=== PATIENT | female | born 1945 | race African-American/Black ===

== ENCOUNTER → 2016-10-29 | Outpatient (CLI) | payer MEDICARE | LOC: OD 15:48 | PROVIDERS: ATTEND Physician Assistant | DX: M54.5 Low back pain (principal); M51.36 Other intervertebral disc degeneration, lumbar region | CPT/HCPCS: 72110 ==

== ENCOUNTER → 2017-10-22 | Outpatient (CLI) | payer MEDICARE ==
--- NOTE | 2017-10-22 08:47 | RADIOLOGY REPORT (SQ) ---
EXAM DESCRIPTION: KNEE LEFT 4 VIEWS; KNEE RIGHT 4 VIEWS COMPLETED DATE/TIME: 10/22/2017 8:20 am REASON FOR STUDY: BILATERAL HIP PAIN,BILAT KNEE PAIN COMPARISON: None. FINDINGS: Four views right knee: Normal bone density. Preserved joint spaces with minimal medial j oint line spurring. No fracture or bone lesion. Probable joint effusion. Four views left knee: Normal bone density. Preserved joint spaces. No fracture or bone lesion. No suggestion of joint effusion. IMPRESSION: No fracture or bone lesion related to either knee. Minimal right knee degenerative spur ring. There may be a right knee joint effusion. TECHNICAL DOCUMENTATION: JOB ID: [id number] Reading location - IP/workstation name: [email or web address]
--- NOTE | 2017-10-22 08:47 | RADIOLOGY REPORT (SQ) ---
EXAM DESCRIPTION: KNEE LEFT 4 VIEWS; KNEE RIGHT 4 VIEWS COMPLETED DATE/TIME: 10/22/2017 8:20 am REASON FOR STUDY: BILATERAL HIP PAIN,BILAT KNEE PAIN COMPARISON: None. FINDINGS: Four views right knee: Normal bone density. Preserved joint spaces with minimal medial j oint line spurring. No fracture or bone lesion. Probable joint effusion. Four views left knee: Normal bone density. Preserved joint spaces. No fracture or bone lesion. No suggestion of joint effusion. IMPRESSION: No fracture or bone lesion related to either knee. Minimal right knee degenerative spur ring. There may be a right knee joint effusion. TECHNICAL DOCUMENTATION: JOB ID: [id number] Reading location - IP/workstation name: [email or web address]
--- NOTE | 2017-10-22 09:13 | RADIOLOGY REPORT (SQ) ---
EXAM DESCRIPTION: HIPS BILATERAL COMPLETED DATE/TIME: 10/22/2017 8:20 am REASON FOR STUDY: BILATERAL HIP PAIN,BILAT KNEE PAIN COMPARISON: None. NUMBER OF VIEWS: Three views, AP pelvis and bilateral frog lateral hips. LIMITATIONS: None. FINDINGS: Normal bone density. Hip joint spaces look fairly symmetric and maintained bilaterally. Mild degenerative sclerosis along the SI joints. No pelvic fracture or bone lesion. No hip fracture . OTHER: No other significant finding. IMPRESSION: No acute or suspicious radiographic abnormality. TECHNICAL DOCUMENTATION: JOB ID: [id number] Reading location - IP/workstation name: [email or web address]
== END ==
LOC: OD 07:59
PROVIDERS: ATTEND Physician Assistant
DX: M25.551 Pain in right hip (principal); M25.552 Pain in left hip; M25.561 Pain in right knee; M25.562 Pain in left knee
CPT/HCPCS: 73522

== ENCOUNTER → 2018-10-16 | Outpatient (CLI) | payer MEDICARE, OTHER ==
--- NOTE | 2018-10-16 13:32 | WOMENS IMAGING REPORT ---
EXAM DESCRIPTION: BONE DENSITY HIP/SPINE COMPLETED DATE/TIME: 10/16/2018 1:22 pm REASON FOR STUDY: M81.0 AGE RELATED OSTEOPOROSIS WITHOUT CURRENT PATHOLOGICAL FRACTURE M81.0 AGE-RE LATED OSTEOPOROSIS W/O CURRENT PATHOLOGICAL FRAC COMPARISON: None. TECHNIQUE: Dual-Energy X-ray Absorptiometry (DEXA) of the AP Spine and Hip. LIMITATIONS: None. FINDINGS: LUMBAR SPINE: The bone mineral density (BMD) measured from L1-L4 in the AP projection correlates with a T-score of -1.3, which is osteopenia as defined by the World Health Organization. HIP: The bone mineral density (BMD) measured in the left hip correlates with a T-score of -2.3 in the femo ral neck, which is osteopenia as defined by the World Health Organization. IMPRESSION: 1. LUMBAR SPINE: Osteopenia 2. HIP: Osteopenia COMMENT: The patient has a 10 year risk of major osteoporotic fracture of 5.4%. Her 10 year risk of hip fracture is 1.1%. The World Health Organization defines low BMD as follows: T-score: Normal: Greater than -1.0 Osteopenia: Between -1.0 and -2.5 Osteoporosis: Less than -2.5 without fractures Established osteoporosis: Less than -2.5 with fractures In general, you may wish to consider: Diagnosis Treatment Follow-up DEXA Normal BMD Prevention 2-3 years Osteopenia Prevention/Therapy 1-2 years Osteoporosis Therapy Yearly TECHNICAL DOCUMENTATION: JOB ID: [id number] [employer]- All Rights Reserved Reading location - IP/workstation name: [email or web address]
== END ==
LOC: WI 13:03
PROVIDERS: ATTEND Physician Assistant
DX: M81.0 Age-related osteoporosis without current pathological fracture (principal)
CPT/HCPCS: 77080

== ENCOUNTER 2019-02-11 14:37 | Emergency (ER) | payer MEDICARE, OTHER ==
[2019-02-11] MEDS ORDERED: ASPIRIN 81 MG TABLET, CHEWABLE PO ONE (15:26)
--- NOTE | 2019-02-11 15:38 | ER Document Report ---
ED Medical Screen (RME) - General Chief Complaint: Chest Pain > 30 Stated Complaint: CHEST PAIN Time Seen by Provider: 02/11/19 15:13 Primary Care Provider: ROXY ESPARZA PA [Primary Care Provider] - Follow up as needed TRAVEL OUTSIDE OF THE [place] IN LAST 30 DAYS: No - HPI Notes: 02/11/19 19:29 73-year-old female started with chest pressure tightness since she has intermittent left arm pain that started today, was seen at the regulatory affairs specialist, states she was feeling "sick" physician or listen to her, after listening to her told her that she needed to go to the emergency room immediately. Denies a history of arrhythmia or heart issues. Patient did take baby aspirin 81 mg today. Denies a history of CA, CAD. Denies any history of asthma. States pain has been a "dull ache". Denies any numbness or tingling to arms or legs, facial numbness or tingling, speech changes. Denies any trauma to chest. Is not on any anticoagulation besides intermittent baby aspirin that she takes sparingly. ROS: Other than noted above, the 12 point review of systems was reviewed with the patient and were negative, all pertinent findings are included in the HPI. PHYSICAL EXAMINATION: Vital signs reviewed. GENERAL: Well-appearing, well-nourished and in no acute distress. HEAD: Atraumatic, normocephalic. NECK: Normal range of motion CV: Heart regular rate and rhythm LUNGS: No respiratory distress Musculoskeletal: Normal range of motion NEUROLOGICAL: Normal speech PSYCH: Normal mood, normal affect. MDM: Patient seen and examined for rapid initial assessment. Vital signs reviewed. A comprehensive ED assessment and evaluation of the patient, analysis of test results and completion of the medical decision making process will be conducted by additional ED providers. *Note is created using voice recognition software and may contain spelling, syntax or grammatical errors. 02/11/19 19:31 - Related Data Allergies/Adverse Reactions: No Known Allergies Allergy (Verified 02/17/15 14:33) Past Medical History - Past Medical History Cardiac Medical History: Denies: Hx Coronary Artery Disease, Hx Heart Attack, Hx Hypertension Pulmonary Medical History: Denies: Hx Asthma, Hx Bronchitis, Hx COPD, Hx Pneumonia Neurological Medical History: Denies: Hx Cerebrovascular Accident, Hx Seizures GI Medical History: Reports: Hx Diverticulitis, Hx Gastroesophageal Reflux Disease. Denies: Hx Hepatitis, Hx Hiatal Hernia, Hx Ulcer Musculoskeltal Medical History: Denies Hx Arthritis Infectious Medical History: Denies: Hx Hepatitis Past Surgical History: Reports: Hx Cholecystectomy, Hx Hysterectomy. Denies: Hx Mastectomy, Hx Open Heart Surgery, Hx Pacemaker - Immunizations Hx Diphtheria, Pertussis, Tetanus Vaccination: Yes - UNKNOWN DATE Physical Exam - Vital signs Vitals: Temp Pulse Resp BP Pulse Ox 97.6 F 90 18 142/79 H 99 02/11/19 15:07 02/11/19 15:07 02/11/19 15:07 02/11/19 15:07 02/11/19 15:07 Course - Vital Signs Vital signs: Temp Pulse Resp BP Pulse Ox 97.6 F 90 18 142/79 H 99 02/11/19 15:07 02/11/19 15:07 02/11/19 15:07 02/11/19 15:07 02/11/19 15:07 - Laboratory Result Diagrams: 02/11/19 15:30 02/11/19 15:30 Laboratory results interpreted by me: 02/11/19 15:30 MCH 26.5 L RDW 14.8 H Doctor's Discharge - Discharge Referrals: ROXY ESPARZA PA [Primary Care Provider] - Follow up as needed
[2019-02-11 15:47] LABS: ABSOLUTE LYMPHOCYTES (AUTO) 1.6 10^3/uL (0.5-4.7); ABSOLUTE MONOCYTES (AUTO) 0.4 10^3/uL (0.1-1.4); ABSOLUTE NEUT (AUTO) 2.1 10^3/uL (1.7-8.2); EOSINOPHILS % (AUTO) 0.8 % (0-6); HEMATOCRIT 40.2 % (36.0-47.0); HEMOGLOBIN 13.2 g/dL (12.0-15.5); LYMPHOCYTES % (AUTO) 38.3 % (13-45); MEAN CORPUSCULAR HEMOGLOBIN 26.5 pg (27.0-33.4); MEAN CORPUSCULAR VOLUME 80 fl (80-97); MONOCYTES % (AUTO) 9.4 % (3-13); PLATELET COUNT 304 10^3/uL (150-450); RED CELL DISTRIBUTION WIDTH 14.8 % (11.5-14.0); SEGMENTED NEUTROPHILS % (AUTO) 50.5 % (42-78); TOTAL CELLS COUNTED % (AUTO) 100 %; WHITE BLOOD COUNT 4.1 10^3/uL (4.0-10.5)
[2019-02-11 15:52] LABS: INTERNATIONAL RATION (INR) 1.04; PROTHROMBIN TIME 13.6 SEC (11.4-15.4)
[2019-02-11 15:53] LABS: PARTIAL THROMBOPLASTIN TIME 31.7 SEC (23.5-35.8)
--- NOTE | 2019-02-11 16:10 | RADIOLOGY REPORT (SQ) ---
EXAM DESCRIPTION: CHEST SINGLE VIEW COMPLETED DATE/TIME: 02/11/2019 3:56 pm REASON FOR STUDY: chest pain COMPARISON: None. EXAM PARAMETERS: NUMBER OF VIEWS: One view. TECHNIQUE: Single frontal radiographic view of the chest acquired. RADIATION DOSE: NA LIMITATIONS: None. FINDINGS: LUNGS AND PLEURA: No opacities, masses or pneumothorax. No pleural effusion. MEDIASTINUM AND HILAR STRUCTURES: No masses. Contour normal. HEART AND VASCULAR STRUCTURES: Heart normal in size. Normal vasculature. BONES: No acute findings. HARDWARE: None in the chest. OTHER: No other significant finding. IMPRESSION: NO ACUTE RADIOGRAPHIC FINDING IN THE CHEST. TECHNICAL DOCUMENTATION: JOB ID: [id number] [employer]- All Rights Reserved Reading location - IP/workstation name: [email or web address]
[2019-02-11 16:14] LABS: ALANINE AMINOTRANSFERASE 27 U/L (9-52); ALBUMIN 4.2 g/dL (3.5-5.0); ALKALINE PHOSPHATASE 126 U/L (38-126); ANION GAP 9 (5-19); ASPARTATE AMINO TRANSFERASE 24 U/L (14-36); BILIRUBIN,DIRECT 0.1 mg/dL (0.0-0.4); BLOOD UREA NITROGEN 12 mg/dL (7-20); CALCIUM 9.9 mg/dL (8.4-10.2); CARBON DIOXIDE 30 mmol/L (22-30); CHLORIDE 103 mmol/L (98-107); CREATINE KINASE 62 U/L (30-135); GLUCOSE 89 mg/dL (75-110); POTASSIUM 4.4 mmol/L (3.6-5.0); SODIUM 141.8 mmol/L (137-145); TOTAL PROTEIN 7.3 g/dL (6.3-8.2)
[2019-02-11 16:26] LABS: TROPONIN I < 0.012 ng/mL
--- NOTE | 2019-02-11 18:57 | EKG REPORT ---
SEVERITY:- BORDERLINE ECG - SINUS RHYTHM PROBABLE LEFT ATRIAL ABNORMALITY : Confirmed by: Sy Bajwa MD 11-Feb-2019 18:57:01
--- NOTE | 2019-02-12 02:00 | ER Document Report ---
ED General - General Chief Complaint: Chest Pain > 30 Stated Complaint: CHEST PAIN Time Seen by Provider: 02/11/19 15:13 Primary Care Provider: ROXY ESPARZA PA [Primary Care Provider] - Follow up as needed Notes: 73-year-old healthy female presents to the emergency department for chest discomfort that started with chest pressure and tightness while accompanying her daughter to her orthopedic appointment, she stated that she was feeling "sick" and asked her daughter's physician to listen to her heart, after listening to her told her that she needed to go to the emergency room immediately. She states the pain was a very dull ache and had no diaphoresis, nausea, acute shortness of breath. No significant family history, she has no medical history and denies a history of arrhythmia or heart issues. Patient did take baby aspirin 81 mg today. Denies any numbness or tingling to arms or legs, facial numbness or tingling, speech changes. Denies any trauma to chest. Is not on any anticoagulation besides intermittent baby aspirin that she takes sparingly. TRAVEL OUTSIDE OF THE [place] IN LAST 30 DAYS: No - Related Data Allergies/Adverse Reactions: No Known Allergies Allergy (Verified 02/17/15 14:33) Past Medical History - Social History Smoking Status: Never Smoker Family History: Reviewed & Not Pertinent - Past Medical History Cardiac Medical History: Denies: Hx Coronary Artery Disease, Hx Heart Attack, Hx Hypertension Pulmonary Medical History: Denies: Hx Asthma, Hx Bronchitis, Hx COPD, Hx Pneumonia Neurological Medical History: Denies: Hx Cerebrovascular Accident, Hx Seizures GI Medical History: Reports: Hx Diverticulitis, Hx Gastroesophageal Reflux Disease. Denies: Hx Hepatitis, Hx Hiatal Hernia, Hx Ulcer Musculoskeletal Medical History: Denies Hx Arthritis Infectious Medical History: Denies: Hx Hepatitis Past Surgical History: Reports: Hx Cholecystectomy, Hx Hysterectomy. Denies: Hx Mastectomy, Hx Open Heart Surgery, Hx Pacemaker - Immunizations Hx Diphtheria, Pertussis, Tetanus Vaccination: Yes - UNKNOWN DATE Review of Systems - Review of Systems Constitutional: See HPI EENT: No symptoms reported Cardiovascular: See HPI Respiratory: See HPI Gastrointestinal: See HPI Genitourinary: No symptoms reported Female Genitourinary: No symptoms reported Musculoskeletal: No symptoms reported Skin: No symptoms reported Hematologic/Lymphatic: No symptoms reported Neurological/Psychological: See HPI Physical Exam - Vital signs Vitals: Temp Pulse Resp BP Pulse Ox 97.6 F 90 18 142/79 H 99 02/11/19 15:07 02/11/19 15:07 02/11/19 15:07 02/11/19 15:07 02/11/19 15:07 - Notes Notes: PHYSICAL EXAMINATION: Reviewed vital signs and charting by RN GENERAL: Alert, interacts well. No acute distress. HEAD: Normocephalic, atraumatic. EYES: Pupils equal and round. Extraocular movements intact. ENT: Oral mucosa moist, tongue midline. NECK: Full range of motion. Trachea midline. LUNGS: Clear to auscultation bilaterally, no wheezes, rales, or rhonchi. No respiratory distress. HEART: Regular rate and rhythm. No murmur ABDOMEN: soft, non-tender. No distention. Bowel sounds present EXTREMITIES: Moves all 4 extremities spontaneously. No edema, No cyanosis. PSYCH: Normal affect, normal mood. SKIN: Warm, dry, normal turgor. No rashes or lesions noted. Course - Re-evaluation Re-evalutation: 02/12/19 02:02 Patient overall very well-appearing. She has no past medical history and is a very healthy 73-year-old female. Heart score 2 for age. Showed normal sinus rhythm with a rate of 86, no axis deviation, QTC 445. Her symptoms were fairly nebulous and a very low suspicion for cardiac etiology. I do not suspect she has PE, aortic aneurysm, aortic dissection, or ACS. No evidence of acute stroke. All lab values within normal limits. Chest x-ray did not show any evidence of parenchymal disease or cardiomegaly, no widened mediastinum. 02/12/19 02:05 Second troponin returned negative. At this time patient is stable for discharge with strict return precautions and follow-up instructions. - Vital Signs Vital signs: Temp Pulse Resp BP Pulse Ox 97.6 F 90 18 142/79 H 99 02/11/19 15:07 02/11/19 15:07 02/11/19 15:07 02/11/19 15:07 02/11/19 15:07 - Laboratory Result Diagrams: 02/11/19 15:30 02/11/19 15:30 Laboratory results interpreted by me: 02/11/19 15:30 MCH 26.5 L RDW 14.8 H Discharge - Discharge Clinical Impression: Chest discomfort Condition: Good Disposition: HOME, SELF-CARE Additional Instructions: You were seen today for chest discomfort. The exact cause of your pain is unclear. However, based on your cardiac enzyme testing, chest x-ray, and EKG it does not appear that it is from an immediately life-threatening cause at this time. Although your testing here is normal is critical that you follow-up with your primary care physician for continued evaluation of this chest pain and possible stress testing. I recommended you see your physician within the next 24-48 hours to be evaluated for consideration of a stress test. Please return to emergency department immediately if you have worsening of your chest pain, shortness of breath, vomiting, become unable to exert yourself due to pain or difficulty breathing, you pass out, or have any pain that radiates into your arms, jaw, or back. Please also return if you have any additional symptoms that are concerning to you. Referrals: ROXY ESPARZA PA [Primary Care Provider] - Follow up as needed
[2019-02-12 02:24] VITALS: BP 148/56
== END 2019-02-12 02:22 | disposition home or self-care (01) ==
LOC: ER 14:37
DX: R07.9 Chest pain, unspecified (principal); Z90.49 Acquired absence of other specified parts of digestive tract; Z90.710 Acquired absence of both cervix and uterus
CPT/HCPCS: 93005; 99285; 36415; 82553; 82550; 85025; 85610; 85730; 80053; 84484; 71045; 93010; A9270

== ENCOUNTER 2019-03-26 04:51 | Emergency (ER) | payer MEDICARE, OTHER ==
[2019-03-26] MEDS ORDERED: NORMAL SALINE 500 ML IV ONE (06:20)
--- NOTE | 2019-03-26 06:23 | ER Document Report ---
ED General - General Chief Complaint: Neck Swelling Stated Complaint: NECK PAIN Time Seen by Provider: 03/26/19 06:10 Primary Care Provider: ROXY ESPARZA PA [Primary Care Provider] - Follow up as needed TRAVEL OUTSIDE OF THE [place] IN LAST 30 DAYS: No - HPI Notes: Patient presents with concern of neck swelling. Patient had endoscopy Saturday of this week. Uneventful procedure had no symptoms 2 0 Saturday. She woke up last night with swelling on medial aspect of right side of anterior neck. States she does not have any difficulty swallowing. No recent traumas fevers or illnesses. Unknown cause of swelling. - Related Data Allergies/Adverse Reactions: No Known Allergies Allergy (Verified 02/17/15 14:33) Past Medical History - Social History Smoking Status: Unknown if Ever Smoked Family History: Reviewed & Not Pertinent - Past Medical History Cardiac Medical History: Denies: Hx Coronary Artery Disease, Hx Heart Attack, Hx Hypertension Pulmonary Medical History: Denies: Hx Asthma, Hx Bronchitis, Hx COPD, Hx Pneumonia Neurological Medical History: Denies: Hx Cerebrovascular Accident, Hx Seizures Renal/ Medical History: Denies: Hx Peritoneal Dialysis GI Medical History: Reports: Hx Diverticulitis, Hx Gastroesophageal Reflux Disease. Denies: Hx Hepatitis, Hx Hiatal Hernia, Hx Ulcer Musculoskeletal Medical History: Denies Hx Arthritis Infectious Medical History: Denies: Hx Hepatitis Past Surgical History: Reports: Hx Cholecystectomy, Hx Hysterectomy. Denies: Hx Mastectomy, Hx Open Heart Surgery, Hx Pacemaker - Immunizations Hx Diphtheria, Pertussis, Tetanus Vaccination: Yes - UNKNOWN DATE Review of Systems - Review of Systems Constitutional: No symptoms reported EENT: See HPI Cardiovascular: No symptoms reported Respiratory: No symptoms reported Gastrointestinal: No symptoms reported Genitourinary: No symptoms reported Female Genitourinary: No symptoms reported Musculoskeletal: No symptoms reported Skin: No symptoms reported Hematologic/Lymphatic: No symptoms reported Neurological/Psychological: No symptoms reported Physical Exam - Vital signs Vitals: Temp Pulse Resp BP Pulse Ox 97.9 F 96 17 145/65 H 96 03/26/19 05:00 03/26/19 05:00 03/26/19 05:00 03/26/19 05:00 03/26/19 05:00 - General General appearance: Appears well, Alert - HEENT Head: Normocephalic, Atraumatic Neck: Other - Minor swelling with induration medial aspect of anterior aspect right side of the neck. Induration area approximately 1 x 3 inches. No erythema or warmth. Normal oropharynx - Respiratory Respiratory status: No respiratory distress Chest status: Nontender Breath sounds: Normal - Cardiovascular Rhythm: Regular Heart sounds: Normal auscultation Murmur: No - Abdominal Inspection: Normal Distension: No distension Course - Re-evaluation Re-evalutation: 03/26/19 10:30 Found to have 2 thyroid nodules that approximately the size that is called on CT report. Discussed findings with patient. Do not feel her symptoms have anything to do with her endoscopy which is on Saturday and then she just noticed these nodules this morning. Advised to follow-up outpatient ultrasound with her primary care provider she states she will do so. - Vital Signs Vital signs: Temp Pulse Resp BP Pulse Ox 97.8 F 85 18 140/80 H 100 03/26/19 10:50 03/26/19 10:50 03/26/19 10:50 03/26/19 10:50 03/26/19 10:50 - Laboratory Result Diagrams: 03/26/19 06:53 03/26/19 06:53 Laboratory results interpreted by me: 03/26/19 03/26/19 06:53 06:53 MCH 26.4 L RDW 14.4 H Carbon Dioxide 32 H Glucose 114 H Discharge - Discharge Clinical Impression: Multiple thyroid nodules Condition: Good Disposition: HOME, SELF-CARE Additional Instructions: Follow-up with your family doctor in regards to the thyroid nodules found today on your CT. Referrals: ROXY ESPARZA PA [Primary Care Provider] - Follow up as needed
[2019-03-26 07:07] LABS: ABSOLUTE BASOPHILS # (AUTO) 0.1 10^3/uL (0.0-0.2); ABSOLUTE LYMPHOCYTES (AUTO) 1.2 10^3/uL (0.5-4.7); ABSOLUTE MONOCYTES (AUTO) 0.5 10^3/uL (0.1-1.4); ABSOLUTE NEUT (AUTO) 4.3 10^3/uL (1.7-8.2); BASOPHILS % (AUTO) 0.8 % (0-2); EOSINOPHILS % (AUTO) 0.6 % (0-6); HEMATOCRIT 38.9 % (36.0-47.0); HEMOGLOBIN 12.9 g/dL (12.0-15.5); LYMPHOCYTES % (AUTO) 20.2 % (13-45); MEAN CORPUSCULAR HEMOGLOBIN 26.4 pg (27.0-33.4); MEAN CORPUSCULAR HGB CONC 33.1 g/dL (32.0-36.0); MEAN CORPUSCULAR VOLUME 80 fl (80-97); MONOCYTES % (AUTO) 7.9 % (3-13); PLATELET COUNT 292 10^3/uL (150-450); RED BLOOD COUNT 4.89 10^6/uL (3.72-5.28); RED CELL DISTRIBUTION WIDTH 14.4 % (11.5-14.0); SEGMENTED NEUTROPHILS % (AUTO) 70.5 % (42-78); TOTAL CELLS COUNTED % (AUTO) 100 %; WHITE BLOOD COUNT 6.1 10^3/uL (4.0-10.5)
[2019-03-26 07:20] LABS: ALBUMIN 4.3 g/dL (3.5-5.0); ALKALINE PHOSPHATASE 123 U/L (38-126); ANION GAP 9 (5-19); ASPARTATE AMINO TRANSFERASE 23 U/L (14-36); BILIRUBIN,DIRECT 0.3 mg/dL (0.0-0.4); BILIRUBIN,TOTAL 0.9 mg/dL (0.2-1.3); BLOOD UREA NITROGEN 13 mg/dL (7-20); CALCIUM 9.9 mg/dL (8.4-10.2); CARBON DIOXIDE 32 mmol/L (22-30); CHLORIDE 100 mmol/L (98-107); GLUCOSE 114 mg/dL (75-110); TOTAL PROTEIN 7.5 g/dL (6.3-8.2)
--- NOTE | 2019-03-26 09:32 | RADIOLOGY REPORT (SQ) ---
EXAM DESCRIPTION: CT SOFT TISSUE NECK WITH COMPLETED DATE/TIME: 03/26/2019 8:32 am REASON FOR STUDY: EGD Saturday of this week, swelling R side of neck COMPARISON: None. TECHNIQUE: Post IV contrasted scanning from skull base through lung apices with review of bone, soft tissue and lung windows. Reconstructed coronal and sagittal MPR images reviewed. All images stored on PACS. All CT scanners at this facility use dose modulation, iterative reconstruction, and/or weight based d osing when appropriate to reduce radiation dose to as low as reasonably achievable (ALARA). [facility]: Dose Right [facility]: CareDose [facility]: Dose Right [facility]: Teradose 4D [facility]: Sakti3 CONTRAST TYPE AND DOSE: contrast/concentration: Isovue 350.00 mg/ml; Total Contrast Delivered: 75.0 ml; Total Saline Delivered: 55.0 ml RENAL FUNCTION: Creatinine 0.7 RADIATION DOSE: CT Rad equipment meets quality standard of care and radiation dose reduction techniq ues were employed. CTDIvol: 13.1 mGy. DLP: 358 mGy-cm. . LIMITATIONS: None. FINDINGS: SKULL BASE: Inferior brain parenchyma in the field of view is unremarkable MAJOR SALIVARY GLANDS: No solid or cystic masses. No inflammatory changes. LYMPHADENOPATHY: No adenopathy. MUCOSAL MASSES OR ASYMMETRY: No mucosal masses or asymmetry. LARYNX/CORDS: No abnormal findings. VASCULAR STRUCTURES: The major vessels are patent. LUNG APICES: Clear. BONES: Intact. Mild degenerative disc change at C4-5 and C5-6 without high-grade foraminal narrowing THYROID: Normal size thyroid gland. There are multiple low-density thyroid lesions for which dedicat ed thyroid ultrasound is recommended, the largest on the right is 2.5 cm in the midpole gland, larges t on the left is 3 cm diameter in the lower pole gland. PARANASAL SINUSES: Clear. OTHER: No other significant finding. IMPRESSION: No focal masses along the left posterior neck Incidental finding of multiple thyroid lesions for which dedicated thyroid ultrasound is recommended TECHNICAL DOCUMENTATION: JOB ID: [id number] Quality ID # [id number]: Final reports with documentation of one or more dose reduction techniques (e.g., Au tomated exposure control, adjustment of the mA and/or kV according to patient size, use of iterative reconstruction technique) 2010 [employer]- All Rights Reserved Reading location - IP/workstation name: [email or web address]
[2019-03-26 11:06] VITALS: BP 140/80
== END 2019-03-26 10:50 | disposition home or self-care (01) ==
LOC: ER 04:51
DX: E04.2 Nontoxic multinodular goiter (principal); M54.2 Cervicalgia; Z90.49 Acquired absence of other specified parts of digestive tract; Z90.710 Acquired absence of both cervix and uterus
CPT/HCPCS: 99284; 96360; 36415; 85025; 80053; 70491; J7040

== ENCOUNTER → 2019-04-09 | Outpatient (CLI) | payer MEDICARE, OTHER ==
--- NOTE | 2019-04-09 17:05 | RADIOLOGY REPORT (SQ) ---
EXAM DESCRIPTION: U/S THYROID/SFT TISS HD NECK COMPLETED DATE/TIME: 04/09/2019 4:40 pm REASON FOR STUDY: E04.1 NONTOXIC SINGLE THYROID NODULE E04.1 NONTOXIC SINGLE THYROID NODULE COMPARISON: None. TECHNIQUE: Dynamic and static yang-scale images acquired of the thyroid gland. Selected additional c olor/power Doppler images recorded. All images stored to PACS. LIMITATIONS: None. FINDINGS: Right lobe thyroid measures 5.2 x 2.1 x 2.4 cm in size. Parenchyma is heterogeneous, with a right midpole nodule, 2.3 x 1.7 cm in size. This nodule is mixed cystic and solid, hypoechoic, wi jamilah than tall, smoothly marginated without comet tail artifact (TI-RADS 2). Left lobe thyroid measures 5.5 x 2.5 x 2 cm in size, parenchyma is heterogeneous with multiple nodule s as follows: Left lobe near the isthmus 1.4 x 0.9 cm in size, spongiform hypoechoic wider than tall with smooth ma rgins and no echogenic foci (TI-RADS 2) Left midpole 1.3 x 0.9 cm spongiform hypoechoic nodule wider than tall with smooth margins and no ech ogenic foci (TI-RADS 2) Left lower pole 1 x 1 cm nodule, spongiform, hypoechoic, wider than tall with smooth margins and no e chogenic foci (TI-RADS 2) The thyroid isthmus is thickened, 6 mm in thickness. IMPRESSION: Probable multinodular goiter. COMMENT: The [employer] ([employer]) Thyroid Imaging Reporting And Data System (TI-RADS ) is an ultrasound feature based summed scoring system of risk categorization and management recommen dations for thyroid nodules. TI-RADS assessment categories are as follows: 0 - Incomplete exam: Additional imaging or comparison to prior examinations recommended. 1. - Benign: Fine-needle aspiration or follow-up not routinely recommended in the absence of clinical change. 2. - Not suspicious: Fine-needle aspiration or follow-up not routinely recommended in the absence of clinical change. 3. - Mildly suspicious: Fine-needle aspiration recommended if greater than or equal to 2.5 cm in size . Ultrasound follow-up recommended if greater than or equal to 1.5 cm in size. 4. - Moderately suspicious: Fine-needle aspiration recommended if greater than or equal to 1.5 cm in size. Ultrasound follow-up recommended if greater than or equal to 1.0 cm in size. 5. - Highly suspicious: Fine-needle aspiration recommended if greater than or equal to 1.0 cm in size . Ultrasound follow-up recommended if greater than or equal to 0.5 cm in size. TECHNICAL DOCUMENTATION: JOB ID: [id number] [email or web address]- All Rights Reserved Reading location - IP/workstation name: [email or web address]
== END ==
LOC: RAD 16:01
PROVIDERS: ATTEND Physician Assistant
DX: E04.1 Nontoxic single thyroid nodule (principal)
CPT/HCPCS: 76536

== ENCOUNTER → 2019-08-07 | Outpatient (CLI) | payer MEDICARE, OTHER ==
--- NOTE | 2019-08-07 16:14 | WOMENS IMAGING REPORT ---
EXAM DESCRIPTION: U/S ABDOMEN COMPLETE W/DOPPLER COMPLETED DATE/TIME: 08/07/2019 10:10 am REASON FOR STUDY: R19.00 INTRA-ABDOMINAL AND PELVIC SWELLING, MASS AND LUMP, UNSPECIFIED SITE R19.00 INTRA-ABD AND PELVIC SWELLING, MASS AND LUMP, UNSP SI COMPARISON: 12/08/2015 TECHNIQUE: Dynamic and static grayscale images acquired of the abdomen and recorded on PACS. Additio nal selected color Doppler and spectral images recorded. Note: Study does not meet criteria for complete doppler/duplex scan LIMITATIONS: None. FINDINGS: PANCREAS: No masses. Visualized pancreatic duct normal caliber. LIVER: The liver measures 14.0 cm in length, normal size. No masses. Echotexture normal. LIVER VASCULATURE: Normal directional flow of the main portal vein and hepatic veins. GALLBLADDER: Prior cholecystectomy. ULTRASOUND-DETECTED PRECIADO'S SIGN: Negative. INTRAHEPATIC DUCTS AND COMMON DUCT: CBD measures 3.2 mm in diameter, normal. The intrahepatic ducts normal caliber. No filling defects. INFERIOR VENA CAVA: Normal flow. AORTA: No aneurysm. RIGHT KIDNEY: The right kidney measures 9.5 x 4.6 x 5.1 cm, normal size. Normal echogenicity. No ruddy id or suspicious masses. No hydronephrosis. No calcifications. LEFT KIDNEY: The left kidney measures 10.1 x 5.9 x 5.2 cm, normal size. Normal echogenicity. No tatiana d or suspicious masses. No hydronephrosis. No calcifications. SPLEEN: Spleen measures 7.6 cm in length, normal size. No solid masses. PERITONEAL AND PLEURAL SPACES: No ascites or effusions. OTHER: The palpable superficial area in the left upper quadrant of the abdomen was also scanned. No abnormality is visualized sonographically. IMPRESSION: 1. No significant interval changes since the prior examination dated 12/08/2015. 2. The palpable area in the left upper quadrant of the abdomen was also scanned. No abnormality vis ualized sonographically. Further evaluation with CT abdomen maybe helpful if clinically indicated. TECHNICAL DOCUMENTATION: JOB ID: [id number] [employer]- All Rights Reserved Reading location - IP/workstation name: [email or web address]
== END ==
LOC: WI 09:07
PROVIDERS: ATTEND Family Medicine
DX: R19.00 Intra-abdominal and pelvic swelling, mass and lump, unspecified site (principal)
CPT/HCPCS: 76700; 93976

== ENCOUNTER 2019-11-27 21:20 | Emergency (ER) | payer MEDICARE, OTHER ==
[2019-11-27 22:07] LABS: ABSOLUTE BASOPHILS # (AUTO) 0.1 10^3/uL (0.0-0.2); ABSOLUTE LYMPHOCYTES (AUTO) 2.1 10^3/uL (0.5-4.7); ABSOLUTE MONOCYTES (AUTO) 0.5 10^3/uL (0.1-1.4); EOSINOPHILS % (AUTO) 0.7 % (0-6); HEMATOCRIT 38.5 % (36.0-47.0); HEMOGLOBIN 13.1 g/dL (12.0-15.5); MEAN CORPUSCULAR HEMOGLOBIN 27.6 pg (27.0-33.4); MEAN CORPUSCULAR VOLUME 81 fl (80-97); MONOCYTES % (AUTO) 7.4 % (3-13); PLATELET COUNT 306 10^3/uL (150-450); RED BLOOD COUNT 4.75 10^6/uL (3.72-5.28); SEGMENTED NEUTROPHILS % (AUTO) 59.9 % (42-78); TOTAL CELLS COUNTED % (AUTO) 100 %; WHITE BLOOD COUNT 6.7 10^3/uL (4.0-10.5)
[2019-11-27 22:22] LABS: ALBUMIN 4.2 g/dL (3.5-5.0); ALKALINE PHOSPHATASE 113 U/L (38-126); ANION GAP 6 (5-19); ASPARTATE AMINO TRANSFERASE 21 U/L (14-36); BILIRUBIN,TOTAL 0.5 mg/dL (0.2-1.3); BLOOD UREA NITROGEN 13 mg/dL (7-20); CALCIUM 10.1 mg/dL (8.4-10.2); CARBON DIOXIDE 31 mmol/L (22-30); CHLORIDE 102 mmol/L (98-107); CREATINE KINASE 93 U/L (30-135); GLUCOSE 102 mg/dL (75-110); POTASSIUM 4.4 mmol/L (3.6-5.0); TOTAL PROTEIN 7.3 g/dL (6.3-8.2)
[2019-11-27 22:33] LABS: CREATINE KINASE MB 0.46 ng/mL (<4.55)
[2019-11-27 22:35] LABS: TROPONIN I < 0.012 ng/mL
[2019-11-27] MEDS ORDERED: LIDOCAINE 2% VISCOUS SOLN 15 ML UDCUP PO ONE (23:36)
[2019-11-27] MEDS ORDERED: MAG HYDROX/AL HYDROX/SIMETH SUSP 30 ML UDCUP PO ONE (23:37)
[2019-11-27] MEDS ORDERED: METOCLOPRAMIDE HCL ORAL SOLN 10 MG/10 ML UDCUP PO ONE (23:38)
--- NOTE | 2019-11-27 23:48 | ER Document Report ---
Entered by SHAWN ARROYO SCRIBE 11/27/19 0029 Acting as scribe for:TALIA COE IV, MD ED General - General Chief Complaint: Chest Pain Stated Complaint: CHEST PAIN Time Seen by Provider: 11/27/19 23:04 Primary Care Provider: CARA OLSEN MD [Primary Care Provider] - Follow up as needed Mode of Arrival: Ambulatory Information source: Patient Notes: This 74 year old female patient presents to the ED today with complaints of left-sided chest pain with associated elevated heart rate that started prior to arrival. Patient states that initially, the pain was constant and sharp, but is now a 1/5 in terms of chest discomfort. Patient states that the onset of her symptoms started after she ate a personal black cheese pizza and that she has been belching ever since. She reports a history of GERD and diverticulitis. She notes that she took 81 mg Aspirin around 1999. She reports that her sports physical therapist is Dr. Currie in [place] and that she tried to go to an urgent care in [place] earlier, but the facility was closed so she decided to come here. She reports increased anxiety due to her current visit and the ongoing COVID-19 pa ndemic. Denies shortness of breath, history of diabetes or hypertension. Denies tobacco or ETOH use. TRAVEL OUTSIDE OF THE [place] IN LAST 30 DAYS: No - Related Data Allergies/Adverse Reactions: No Known Allergies Allergy (Verified 11/28/19 01:37) Home Medications: Prevacid. Aspirin. Gas X. zyrtec Past Medical History - General Information source: Patient - Social History Smoking Status: Never Smoker Cigarette use (# per day): No Chew tobacco use (# tins/day): No Smoking Education Provided: No Frequency of alcohol use: None Drug Abuse: None Family History: Reviewed & Not Pertinent Patient has suicidal ideation: No Patient has homicidal ideation: No GI Medical History: Reports: Hx Diverticulitis, Hx Gastroesophageal Reflux Disease Past Surgical History: Reports: Hx Cholecystectomy, Hx Hysterectomy - Immunizations Hx Diphtheria, Pertussis, Tetanus Vaccination: Yes - UNKNOWN DATE Review of Systems - Review of Systems Constitutional: No symptoms reported EENT: No symptoms reported Cardiovascular: See HPI, Chest pain, Palpitations Respiratory: See HPI. denies: Short of breath Gastrointestinal: See HPI, Other - Constant belching Genitourinary: No symptoms reported Female Genitourinary: No symptoms reported Musculoskeletal: No symptoms reported Skin: No symptoms reported Hematologic/Lymphatic: No symptoms reported Neurological/Psychological: See HPI, Anxiety -: Yes All other systems reviewed and negative Physical Exam - Vital signs Vitals: Temp 97.9 F 11/27/19 21:31 - General General appearance: Alert, Anxious, Other - Belching In distress: None - HEENT Head: Normocephalic, Atraumatic Eyes: Normal Pupils: PERRL - Respiratory Respiratory status: No respiratory distress Chest status: Nontender Breath sounds: Normal Chest palpation: Normal - Cardiovascular Rhythm: Regular Heart sounds: Normal auscultation Murmur: No Friction rub: No Gallop: None auscultated - Abdominal Inspection: Normal Distension: No distension Bowel sounds: Normal Tenderness: Nontender - Abdomen soft Organomegaly: No organomegaly - Back Back: Normal, Nontender - Extremities General upper extremity: Normal inspection General lower extremity: Normal inspection - Neurological Neuro grossly intact: Yes - Psychological Associated symptoms: Anxious - Skin Skin Temperature: Warm Skin Moisture: Dry Skin Color: Normal Course - Re-evaluation Re-evalutation: 11/28/19 01:40 Patient states her symptoms have improved after taking the GI cocktail. Results of ED MSE discussed with patient. All questions were answered prior to discharge. Emergency signs and symptoms, reasons to return to the emergency department discussed with patient. - Vital Signs Vital signs: Temp Pulse Resp BP Pulse Ox 97.9 F 89 14 158/78 H 99 11/27/19 21:32 11/27/19 21:32 11/28/19 01:01 11/28/19 01:01 11/28/19 01:01 - Laboratory Result Diagrams: 11/27/19 21:55 11/27/19 21:55 Laboratory results interpreted by me: 11/27/19 21:55 Carbon Dioxide 31 H - EKG Interpretation by Me Additional EKG results interpreted by me: 11/28/19 01:41 EKG obtained on 11/27/2019 at 2127 hrs. was interpreted by this MD. Findings: Sinus tachycardia, rate 102, normal axis, P waves proceed QRS complexes, QRS complexes appear narrow, there are no obvious patterns of ST segment elevation or depression present to suggest acute myocardial ischemia or infarction. I mpression sinus tachycardia with nonspecific ST segments Discharge - Discharge Clinical Impression: Indigestion Condition: Good Disposition: HOME, SELF-CARE Additional Instructions: Return to the Emergency Department without delay if any worse. HOME CARE INSTRUCTIONS & INFORMATION: Thank you for choosing us for your medical needs. We hope you're satisfied with the care you received. After you leave, you must properly care for your problem and, at the same time, observe its progress. Any condition can change. Some illnesses can change rapidly over hours or days. If your condition worsens, return to the Emergency Department or see your physician promptly. ABOUT YOUR X-RAYS AND EKG'S: If you had an EKG or X-rays taken, they have been read by the Emergency Physician. The X-rays and EKG's will also be read by a Radiologist or Custom Applicator within 24 hours. If discrepancies are noted, you will be notified by telephone. Please be certain the ED has a correct telephone number & address where you can be reached. Also, realize that some fractures or abnormalities do not show up on initial X-rays. If your symptoms continue, see your physician. ABOUT YOUR LABORATORY TEST: If you had laboratory tests, the results have been reviewed by the Emergency Physician. Some test results (for example cultures) may not be available for several days. You will be contacted if any test result shows you need additional treatment. Please be certain the ED has a correct telephone number and address where you can be reached. ABOUT YOUR MEDICATIONS: You will receive instructions on how to take your medicine on the prescription label you receive. Additional information may be provided by the Pharmacy. If you have questions afterwards, call the ED for clarification or further instructions. Some prescribed medications may cause drowsiness. Do not perform tasks such as driving a car or operating machinery without consulting your Pharmacist. If you feel you need a refill of pain medication, your condition will need re-evaluation. Please do not call for a refill of any medication. ABOUT YOUR SIGNATURE: Signature of this document acknowledges to followin. Understanding that you received emergency treatment and that you may be released before al medical problems are known or treated. Please be certain the ED has a correct phone number & address where you can be reached. 2. Acknowledgement that you will arrange for follow-up care as recommended. 3. Authorization for the Emergency Physician to provide information to your follow-up Physician in order to maximize your care. AT ANY TIME, IF YOUR SYMPTOMS CHANGE SIGNIFICANTLY OR WORSEN OR YOU DEVELOP NEW SYMPTOMS, RETURN TO THE EMERGENCY DEPARTMENT IMMEDIATELY FOR RE-EVALUATION. OUR GOAL IS TO PROVIDE EXCELLENT MEDICAL CARE! WE HOPE THAT WE HAVE MET YOUR EXPECTATIONS DURING YOUR EMERGENCY DEPARTMENT VISIT AND THAT YOU FEEL YOU HAVE RECEIVED EXCELLENT CARE! Reflux Disease (GERD) Gastro-Esophageal Reflux Disease (GERD) is caused by stomach acid refluxing back up into the esophagus. The valve at the end of the esophagus may be weak. This is common in persons with a hiatal hernia. GERD symptoms can include indigestion, chest pain, heartburn, or food "sticking." Certain foods, alcohol, and aspirin can make GERD worse. Treatment depends on the severity. Usually, antacids or acid-suppressing medicines are used. When the esophagus is acutely inflamed, the physician will o ften prescribe membrane-protective drugs such as Carafate. Some patients benefit from medication such as Reglan that tightens the valve at the top of the stomach. Avoid those foods that bring on your symptoms. For many people, these foods are coffee, chocolate, onions, garlic, and carbonated drinks. Don't use alcohol, aspirin, caffeine, or tobacco. Don't eat late at night -- within 4 hours of bedtime. Don't over-eat. If necessary, elevate the head of your bed about 4 inches so that stomach acid will not roll up into your esophagus. Call the doctor if you develop severe chest pain, inability to swallow fluids, fever, or worsening symptoms. Referrals: CARA OLSEN MD [Primary Care Provider] - 11/30/19 I personally performed the services described in the documentation, reviewed and edited the documentation which was dictated to the scribe in my presence, and it accurately records my words and actions.
--- NOTE | 2019-11-28 00:13 | RADIOLOGY REPORT (SQ) ---
AP Portable chest: 11/27/2019 11:11 PM CDT History: 74-year old patient with chest pain. Comparison: Chest radiograph performed 02/11/2019. Findings: The cardiomediastinal silhouette is enlarged. No pneumothorax is seen. No discrete pleural effusion is apparent. No acute airspace opacities are seen. Atherosclerotic calcifications are seen at the aortic arch. Impression: No acute airspace opacities are seen. The cardiomediastinal silhouette is enlarged.
[2019-11-28 01:42] VITALS: BP 178/98
--- NOTE | 2019-11-28 09:23 | EKG REPORT ---
SEVERITY:- BORDERLINE ECG - SINUS TACHYCARDIA PROBABLE LEFT ATRIAL ABNORMALITY BORDERLINE T ABNORMALITIES, DIFFUSE LEADS : Confirmed by: Shikha Coreas MD 28-Nov-2019 09:22:43
== END 2019-11-28 01:59 | disposition home or self-care (01) ==
LOC: ER 21:20
DX: K30 Functional dyspepsia (principal); K21.9 Gastro-esophageal reflux disease without esophagitis; F41.9 Anxiety disorder, unspecified; R07.9 Chest pain, unspecified; R14.2 Eructation; R00.2 Palpitations; R00.0 Tachycardia, unspecified; Z79.899 Other long term (current) drug therapy; Z79.82 Long term (current) use of aspirin
CPT/HCPCS: 93005; 99284; 36415; 82553; 82550; 85025; 80053; 84484; 71045; 93010; J3490; A9270 ×2

== ENCOUNTER → 2020-01-18 | Outpatient (CLI) | payer MEDICARE, OTHER ==
--- NOTE | 2020-01-18 16:55 | RADIOLOGY REPORT (SQ) ---
EXAM DESCRIPTION: ACUTE ABDOMEN SERIES IMAGES COMPLETED DATE/TIME: 01/18/2020 4:26 pm REASON FOR STUDY: CONSTIPATION, UNSPECIFIED K59.00 CONSTIPATION, UNSPECIFIED R14.0 ABDOMINAL DISTE NSION (GASEOUS) R14.3 FLATULENCE COMPARISON: None. NUMBER OF VIEWS: Three views. TECHNIQUE: Frontal chest, supine abdomen and upright/decubitus abdomen radiographic images acquired. LIMITATIONS: None. FINDINGS: CHEST: Lungs clear of infiltrates. FREE AIR: None. No abnormal gas collections. BOWEL GAS PATTERN: Nonobstructive pattern. There is not appear to be a significant amount of retaine d stool. CALCIFICATIONS: No suspicious calcifications. HARDWARE: There appear to be some type of skin lena in the lower abdomen. SOFT TISSUES: No gross mass or suggestion of organomegaly. BONES: No acute fracture. No worrisome bone lesions. OTHER: No other significant finding. IMPRESSION: NO RADIOGRAPHIC EVIDENCE FOR ACUTE ABDOMINAL DISEASE. TECHNICAL DOCUMENTATION: JOB ID: [id number] 2010 [employer]- All Rights Reserved Reading location - IP/workstation name: [email or web address]
== END ==
LOC: OD 16:05
PROVIDERS: ATTEND Physician Assistant
DX: K59.00 Constipation, unspecified (principal); R14.0 Abdominal distension (gaseous); R14.3 Flatulence
CPT/HCPCS: 74022

== ENCOUNTER → 2020-01-27 | Outpatient (CLI) | payer MEDICARE, OTHER ==
[2020-01-27 14:49] LABS: ABSOLUTE LYMPHOCYTES (AUTO) 1.2 10^3/uL (0.5-4.7); ABSOLUTE MONOCYTES (AUTO) 0.4 10^3/uL (0.1-1.4); ABSOLUTE NEUT (AUTO) 2.4 10^3/uL (1.7-8.2); BASOPHILS % (AUTO) 0.9 % (0-2); EOSINOPHILS % (AUTO) 0.3 % (0-6); HEMATOCRIT 40.1 % (36.0-47.0); HEMOGLOBIN 13.4 g/dL (12.0-15.5); MEAN CORPUSCULAR HEMOGLOBIN 27.3 pg (27.0-33.4); MEAN CORPUSCULAR HGB CONC 33.4 g/dL (32.0-36.0); MEAN CORPUSCULAR VOLUME 82 fl (80-97); PLATELET COUNT 324 10^3/uL (150-450); RED CELL DISTRIBUTION WIDTH 14.3 % (11.5-14.0); SEGMENTED NEUTROPHILS % (AUTO) 60.8 % (42-78); TOTAL CELLS COUNTED % (AUTO) 100 %
[2020-01-27 14:58] LABS: ALBUMIN 4.4 g/dL (3.5-5.0); ALKALINE PHOSPHATASE 113 U/L (38-126); ANION GAP 7 (5-19); ASPARTATE AMINO TRANSFERASE 23 U/L (14-36); BILIRUBIN,TOTAL 0.9 mg/dL (0.2-1.3); BLOOD UREA NITROGEN 9 mg/dL (7-20); CALCIUM 10.1 mg/dL (8.4-10.2); CARBON DIOXIDE 30 mmol/L (22-30); CHLORIDE 103 mmol/L (98-107); GLUCOSE 98 mg/dL (75-110); POTASSIUM 4.8 mmol/L (3.6-5.0); TOTAL PROTEIN 7.6 g/dL (6.3-8.2)
== END ==
LOC: OD 13:09
PROVIDERS: ATTEND Physician Assistant
DX: R07.9 Chest pain, unspecified (principal); E04.1 Nontoxic single thyroid nodule; E03.9 Hypothyroidism, unspecified; R94.6 Abnormal results of thyroid function studies
CPT/HCPCS: 36415; 80053; 84443; 84484; 85025

== ENCOUNTER 2020-02-02 04:16 | Emergency (ER) | payer MEDICARE, OTHER ==
[2020-02-02] MEDS ORDERED: MAG HYDROX/AL HYDROX/SIMETH SUSP 30 ML UDCUP PO ONE (06:38)
[2020-02-02] MEDS ORDERED: LIDOCAINE 2% VISCOUS SOLN 15 ML UDCUP PO ONE (06:38)
[2020-02-02] MEDS ORDERED: METOCLOPRAMIDE HCL ORAL SOLN 10 MG/10 ML UDCUP PO ONE (06:39)
--- NOTE | 2020-02-02 07:13 | EKG REPORT ---
SEVERITY:- BORDERLINE ECG - SINUS RHYTHM BORDERLINE T ABNORMALITIES, ANTERIOR AND INFERIOR LEADS ,SLIGHT CHANGE COMPARED TO 11/27/19 : Confirmed by: Sy Bajwa MD 02-Feb-2020 07:12:00
--- NOTE | 2020-02-02 07:18 | RADIOLOGY REPORT (SQ) ---
LEFT SHOULDER RADIOGRAPHS: 02/02/2020 6:16 AM CDT TECHNIQUE: AP, Y views of the left shoulder were obtained. COMPARISON: None available HISTORY: 74-year old patient with left shoulder pain. FINDINGS: The visualized portions of the left hemithorax appear unremarkable. The left acromioclavicular joint demonstrates mild degenerative spurring. There are no findings to suggest an acute fracture of the left shoulder. The visualized portions of the left clavicle demonstrate no evidence of an acute fracture. The visualized soft tissues appear unremarkable. IMPRESSION: There are no findings to suggest an acute fracture of the left shoulder.
[2020-02-02] MEDS ORDERED: ACETAMINOPHEN 325 MG TABLET PO ONE (08:56)
[2020-02-02 09:13] VITALS: BP 128/78
--- NOTE | 2020-02-02 14:04 | ER Document Report ---
Entered by LEO LOGAN SCRIBE 02/02/20 0638 Acting as scribe for:TALIA COE IV, MD ED General - General Chief Complaint: Shoulder Pain Stated Complaint: SHOULDER PAIN Time Seen by Provider: 02/02/20 06:24 Primary Care Provider: RAJ GLI PA [Primary Care Provider] - Follow up as needed Mode of Arrival: Ambulatory Information source: Patient Notes: This 74-year-old female patient presents to the emergency department today with complaints of left shoulder pain. Patient mentions that there is a "hard" place and she indicates this area to be her trapezius muscle. Patient states that she saw her PCP last week and told her about this and she told her that it "could be stress related". Patient also mentions that her "left arm just feels different" and indicates that she has altered sensation in her first, second, and third fingers on the left hand. TRAVEL OUTSIDE OF THE [place] IN LAST 30 DAYS: No - Related Data Allergies/Adverse Reactions: No Known Allergies Allergy (Verified 11/28/19 01:37) Home Medications: prevacid, probiotic, Past Medical History - General Information source: Patient - Social History Smoking Status: Never Smoker Cigarette use (# per day): No Frequency of alcohol use: None Drug Abuse: None Family History: Reviewed & Not Pertinent Patient has homicidal ideation: No GI Medical History: Reports: Hx Diverticulitis, Hx Gastroesophageal Reflux Disease Past Surgical History: Reports: Hx Cholecystectomy, Hx Hysterectomy - Immunizations Hx Diphtheria, Pertussis, Tetanus Vaccination: Yes - UNKNOWN DATE Review of Systems - Review of Systems Constitutional: No symptoms reported EENT: No symptoms reported Cardiovascular: No symptoms reported Respiratory: No symptoms reported Gastrointestinal: No symptoms reported Genitourinary: No symptoms reported Female Genitourinary: No symptoms reported Musculoskeletal: See HPI, Joint pain - left shoulder pain Skin: No symptoms reported Hematologic/Lymphatic: No symptoms reported Neurological/Psychological: No symptoms reported -: Yes All other systems reviewed and negative Physical Exam - Vital signs Vitals: Temp Pulse Resp BP Pulse Ox 97.8 F 95 18 155/88 H 100 02/02/20 04:23 02/02/20 04:23 02/02/20 04:23 02/02/20 04:23 02/02/20 04:23 - Notes Notes: Physical Exam: General: Alert, appears well. HEENT: Normocephalic. Atraumatic. PERRL. Extraocular movements intact. Oropharynx clear. Neck: Supple. Non-tender. Respiratory: No respiratory distress. Clear and equal breath sounds bilaterally. Cardiovascular: Regular rate and rhythm. Abdominal: Normal Inspection. Non-tender. No distension. Normal Bowel Sounds. Back: Trapezius muscle spasm, left > right. Extremities: Moves all four extremities. Upper extremities: Normal inspection. Normal ROM. Lower extremities: Normal inspection. No edema. Normal ROM. Neurological: Normal cognition. AAOx4. Normal speech. Altered sensation in 1st, 2nd, and 3rd fingers. Psychological: Normal affect. Normal Mood. Skin: Warm. Dry. Normal color. Course - Re-evaluation Re-evalutation: 02/02/20 08:21 Results of ED MSE discussed with patient. All questions were answered prior to discharge. Emergency signs and symptoms, reasons to return to the emergency department discussed with patient. - Vital Signs Vital signs: Temp Pulse Resp BP Pulse Ox 97.8 F 95 18 155/88 H 100 02/02/20 04:23 02/02/20 04:23 02/02/20 04:23 02/02/20 04:23 02/02/20 04:23 - Diagnostic Test Radiology reviewed: Reports reviewed - EKG Interpretation by Me Additional EKG results interpreted by me: 02/02/20 08:22 EKG obtained on 02/02/2020 at 0659 hrs. was interpreted by this MD. Findings: Normal sinus rhythm, rate 85, normal axis, P waves preceding QRS complexes, QRS complexes appear narrow, there are no obvious patterns of ST segment elevation or depression present to suggest acute myocardial ischemia or infarction. Impression normal sinus rhythm with nonspecific ST segments. Discharge - Discharge Clinical Impression: Cervical radiculopathy Acid reflux Qualifiers: Esophagitis presence: esophagitis presence not specified Qualified Code(s): K21.9 - Gastro-esophageal reflux disease without esophagitis Condition: Stable Disposition: HOME, SELF-CARE Additional Instructions: Return to the Emergency Department without delay if any worse. Be certain to wear your shoulder immobilizer at all times with the exception of when you shower. Be certain to do this for the next 7 days. You need to keep the immobilizer on when you sleep as well for the next 7 days. If your symptoms fail to improve despite using the shoulder immobilizer exactly as directed, contact Dr. Leiva's office to arrange a follow-up appointment. HOME CARE INSTRUCTIONS & INFORMATION: Thank you for choosing us for your medical needs. We hope you're satisfied with the care you received. After you leave, you must properly care for your problem and, at the same time, observe its progress. Any condition can change. Some illnesses can change rapidly over hours or days. If your condition worsens, return to the Emergency Department or see your physician promptly. ABOUT YOUR X-RAYS AND EKG'S: If you had an EKG or X-rays taken, they have been read by the Emergency Physician. The X-rays and EKG's will also be read by a Radiologist or Resort Housekeeper within 24 hours. If discrepancies are noted, you will be notified by telephone. Please be certain the ED has a correct telephone number & address where you can be reached. Also, realize that some fractures or abnormalities do not show up on initial X-rays. If your symptoms continue, see your physician. ABOUT YOUR LABORATORY TEST: If you had laboratory tests, the results have been reviewed by the Emergency Physician. Some test results (for example cultures) may not be available for several days. You will be contacted if any test result shows you need additional treatment. Please be certain the ED has a correct telephone number and address where you can be reached. ABOUT YOUR MEDICATIONS: You will receive instructions on how to take your medicine on the prescription label you receive. Additional information may be provided by the Pharmacy. If you have questions afterwards, call the ED for clarification or further instructions. Some prescribed medications may cause drowsiness. Do not perform tasks such as driving a car or operating machinery without consulting your Pharmacist. If you feel you need a refill of pain medication, your condition will need re-evaluation. Please do not call for a refill of any medication. ABOUT YOUR SIGNATURE: Signature of this document acknowledges to followin. Understanding that you received emergency treatment and that you may be released before al medical problems are known or treated. Please be certain the ED has a correct phone number & address where you can be reached. 2. Acknowledgement that you will arrange for follow-up care as recommended. 3. Authorization for the Emergency Physician to provide information to your follow-up Physician in order to maximize your care. AT ANY TIME, IF YOUR SYMPTOMS CHANGE SIGNIFICANTLY OR WORSEN OR YOU DEVELOP NEW SYMPTOMS, RETURN TO THE EMERGENCY DEPARTMENT IMMEDIATELY FOR RE-EVALUATION. OUR GOAL IS TO PROVIDE EXCELLENT MEDICAL CARE! WE HOPE THAT WE HAVE MET YOUR EXPECTATIONS DURING YOUR EMERGENCY DEPARTMENT VISIT AND THAT YOU FEEL YOU HAVE RECEIVED EXCELLENT CARE! Radiculopathy Radiculopathy is irritation of a nerve. Sometimes this is called "pinched nerve." The pain can be sharp and stabbing, constant and dull, or burning in n ature. The pain can occur in any area of the chest, shoulders, or arms. Sometimes the pain is provoked by coughing or moving. Radiculopathy can be caused by physical pressure on a nerve, such as a herniated disc or swollen joint in the spine. It can also be caused by viral infections within the nerve or by nerve damage due to diabetes or blood vessel disease. Radicular pain is treated with antiinflammatory medicine. Injections may help resistant cases, if we can identify a single nerve that's causing the pain. Surgery is usually not necessary. If symptoms do not improve with time, you may need additional testing, such as an MRI or EMG (electromyogram). Return if there is local weakness or numbness, shortness of breath, increasing pain, or other new symptoms. Prescriptions: Sucralfate [Carafate Susp 1 Gm/10 Ml Udcup] 1 gm PO QID #200 ml Referrals: RAJ GIL PA [Primary Care Provider] - Follow up as needed SYLWIA LEIVA MD [ACTIVE STAFF] - Follow up as needed I personally performed the services described in the documentation, reviewed and edited the documentation which was dictated to the scribe in my presence, and it accurately records my words and actions.
== END 2020-02-02 09:12 | disposition home or self-care (01) ==
LOC: ER 04:16
DX: M54.12 Radiculopathy, cervical region (principal); K21.9 Gastro-esophageal reflux disease without esophagitis; M25.512 Pain in left shoulder; M54.6 Pain in thoracic spine; R20.0 Anesthesia of skin
CPT/HCPCS: 93005; 99283; 73030; 93010; A9270 ×3; J3490

== ENCOUNTER → 2020-02-10 | Outpatient (CLI) | payer MEDICARE, OTHER ==
[2020-02-10 13:33] VITALS: BP 142/67
--- NOTE | 2020-02-10 13:33 | ER RDC ASSESSMENT REPORT ---
Intake - In the Last 14 days Have you traveled outside [place]?: No Have you been in close contact with someone CONFIRMED: No Worked in Healthcare?: No - Symptoms Subjective Fever([place] feverish): No Chills: No Muscule Aches: No Runny Nose: No Sore Throat: No Cough (New or worsening chronic cough): No Shortness of breath: No Nausea or Vomiting: No Headache: No Abdominal Pain: No Diarrhea(3 or more loose stools in last 24 hours): No - Do you have any of the following Chronic lung disease: Asthma or emphysema or COPD: No Cystic Fibrosis: No Diabetes: No High Blood Pressure: No Cardiovascular Disease: No Chronic Kidney Disease: No Chronic Liver Disease: No Chronic blood disorder like Sickle Cell Disease: No Weak immune system due to disease or medication: No Neurologic condition that limits movement: No Developmental delay - Moderate to Severe: No Recent (within past 2 weeks) or current : No Morbid Obesity (>100 pounds over ideal weight): No - Objective Temperature: 98.3 F Pulse Rate: 93 Respiratory Rate: 18 Blood Pressure: 142/67 O2 Sat by Pulse Oximetry: 92 Objective: Given above, testing performed: covid only Disposition: Home; Selfcare General - General Chief Complaint: Other Time Seen by Provider: 02/10/20 13:15 Mode of Arrival: Ambulatory Information source: Patient - HPI Notes: Patient presents to clinic for COVID-19 testing. They have no significant medical history beyond anxiety and GERD. Patient reports no known exposure to COVID positive individual. Patient states she has severe anxiety and would like to be tested. Patient is asymptomatic. They deny any cough, shortness of breath, fever, chills, muscle aches, rhinorrhea, sore throat, nausea or vomiting, headache, abdominal pain or diarrhea. Patient has no acute medical concerns - Related Data Allergies/Adverse Reactions: No Known Allergies Allergy (Verified 11/28/19 01:37) Past Medical History - General Information source: Patient - Social History Smoking Status: Never Smoker Family History: Reviewed & Not Pertinent - Past Medical History Cardiac Medical History: Reports: None Denies: Hx Coronary Artery Disease, Hx Heart Attack, Hx Hypertension Pulmonary Medical History: Reports: None Denies: Hx Asthma, Hx Bronchitis, Hx COPD, Hx Pneumonia EENT Medical History: Reports: None Neurological Medical History: Reports: None. Denies: Hx Cerebrovascular Accident, Hx Seizures Endocrine Medical History: Reports: None Renal/ Medical History: Reports: None. Denies: Hx Peritoneal Dialysis Malignancy Medical History: Reports: None GI Medical History: Reports: Hx Diverticulitis, Hx Gastroesophageal Reflux Disease. Denies: Hx Hepatitis, Hx Hiatal Hernia, Hx Ulcer Musculoskeletal Medical History: Reports None, Denies Hx Arthritis Skin Medical History: Reports None Psychiatric Medical History: Reports: Hx Anxiety Traumatic Medical History: Reports: None Infectious Medical History: Reports: None. Denies: Hx Hepatitis Past Surgical History: Reports: Hx Cholecystectomy, Hx Hysterectomy. Denies: Hx Mastectomy, Hx Open Heart Surgery, Hx Pacemaker Physical Exam - General General appearance: Appears well, Alert In distress: None Notes: PHYSICAL EXAMINATION: GENERAL: Well-appearing and in no acute distress. HEAD: Atraumatic, normocephalic. EYES: sclera anicteric, conjunctiva are normal. ENT: nares patent. Moist mucous membranes. NECK: Normal range of motion, supple without lymphadenopathy LUNGS: CTAB and equal. No wheezes rales or rhonchi. HEART: Regular rate and rhythm without murmurs ABDOMEN: Soft, nontender, normal bowel sounds, no guarding. EXTREMITIES: Normal range of motion, no pitting edema. No cyanosis. NEUROLOGICAL: Cranial nerves grossly intact. Normal speech. PSYCH: Normal mood, normal affect. SKIN: Warm, Dry, normal turgor, no rashes or lesions noted Patient Education/Counseling Counseling/Education: Patient presents for COVID 19 testing. No known exposure to person who is confirmed positive for COVID 19. Patient remains asymptomatic at this time. Patient does not have emergency worrying symptoms such as difficulty breathing, shortness of breath, chest pain, pressure, confusion or cyanosis. Patient appears suitable for discharge as vital signs are stable and patient is nontoxic in appearance. Good return precautions have been discussed with patient, patient verbalized understanding and is agreeable with discharge plan of care at this time. Guidance for worsening S/SX: As a person under investigation for Covid 19, the [facility] of Health and Human Services, division of public health advises you to adhere to the following guidance until your test results are reported to you. If your test result is positive, you will receive additional information from your provider and your local health department at that time. Remain at home until you are cleared by the health provider or public health authorities. Keep a log of visitors to your home, notify any visitors to your home of your isolation status. If you plan to move to a new address or leave the county, notify the local health department in your County. Call your doctor or seek care if you have an urgent medical need. Before seeking medical care, call ahead to get instructions from the provider before arriving at the medical office clinic or hospital. Notify them that you are being tested for the virus that causes Covid 19 so that arrangements can be made, as necessary, to prevent transmission to others in the healthcare setting. Next, notify the local health department in your county. If a medical emergency arises and you need to call 911, inform the first responders that you are being tested for the virus that causes Covid 19. Next, notify the local health department in your county. RDC Discharge - Discharge Clinical Impression: Encounter for screening laboratory testing for COVID-19 virus in asymptomatic patient Condition: Good Disposition: Home; Selfcare
== END ==
LOC: RDC 12:41
PROVIDERS: ATTEND Registered Nurse
DX: Z20.828 Contact with and (suspected) exposure to other viral communicable diseases (principal); K21.9 Gastro-esophageal reflux disease without esophagitis; F41.9 Anxiety disorder, unspecified
CPT/HCPCS: U0003; C9803; 87635; 99201; 99211

== ENCOUNTER → 2020-02-24 | Outpatient (CLI) | payer MEDICARE, OTHER ==
--- NOTE | 2020-02-24 13:35 | RADIOLOGY REPORT (SQ) ---
EXAM DESCRIPTION: CT ABD/PELVIS WITH IV ORAL IMAGES COMPLETED DATE/TIME: 02/24/2020 1:10 pm REASON FOR STUDY: ABD PAIN (R10.9) R10.9 UNSPECIFIED ABDOMINAL PAIN COMPARISON: 01/04/2016 TECHNIQUE: CT scan of the abdomen and pelvis performed using helical scanning technique with dynamic intravenous contrast injection. Patient was given oral contrast. Images reviewed with lung, soft ti ssue, and bone windows. Reconstructed coronal and sagittal MPR images reviewed. Delayed images for ev aluation of the urinary system also acquired. All images stored on PACS. All CT scanners at this facility use dose modulation, iterative reconstruction, and/or weight based d osing when appropriate to reduce radiation dose to as low as reasonably achievable (ALARA). [facility]: Dose Right [facility]: CareDose [facility]: Dose Right [facility]: Teradose 4D [facility]: [place] CONTRAST TYPE AND DOSE: contrast/concentration: Isovue 350.00 mmol/ml; Total Contrast Delivered: 79. 0 ml; Total Saline Delivered: 68.0 ml RENAL FUNCTION: Creatinine 0.73 RADIATION DOSE: CT Rad equipment meets quality standard of care and radiation dose reduction techniq ues were employed. CTDIvol: 6.9 - 7.0 mGy. DLP: 719 mGy-cm.. LIMITATIONS: None. FINDINGS: LOWER CHEST: No significant findings. No nodules or infiltrates. LIVER: Hypoattenuation along the falciform ligament, likely secondary to systemic venous drainage. S ubcentimeter hypodense hepatic lesion within the dome, likely cyst but difficult to completely charac terize secondary to size, stable. No additional focal lesions. No intrahepatic ductal dilation. SPLEEN: Normal size. No focal lesions. PANCREAS: No masses. No significant calcifications. No adjacent inflammation or peripancreatic fluid collections. Pancreatic duct not dilated. GALLBLADDER: Surgically absent. ADRENAL GLANDS: No significant masses or asymmetry. RIGHT KIDNEY AND URETER: No solid masses. Lower pole cyst. No significant calcifications. No hyd ronephrosis or hydroureter. LEFT KIDNEY AND URETER: No solid masses. No significant calcifications. No hydronephrosis or hydr oureter. AORTA AND VESSELS: No aneurysm. No dissection. Renal arteries, SMA, celiac without stenosis. RETROPERITONEUM: No retroperitoneal adenopathy, hemorrhage or masses. BOWEL AND PERITONEAL CAVITY: Few scattered colonic diverticula. No focal bowel wall thickening. No evidence of intestinal obstruction. APPENDIX: Not visualized. PELVIS: No mass. No free fluid. Normal bladder. ABDOMINAL WALL: Evidence of prior midline hernia repair. No subcutaneous masses. No additional karen ias. BONES: No acute bony abnormality. No suspicious osseous lesions. Lower lumbar facet arthropathy. OTHER: No other significant finding. IMPRESSION: No evidence of acute intra-abdominal/pelvic process. Incidental findings as above. TECHNICAL DOCUMENTATION: JOB ID: [id number] Quality ID # [id number]: Final reports with documentation of one or more dose reduction techniques (e.g., Au tomated exposure control, adjustment of the mA and/or kV according to patient size, use of iterative reconstruction technique) 2010 [employer]- All Rights Reserved Reading location - IP/workstation name: [email or web address]
== END ==
LOC: RAD 12:14
PROVIDERS: ATTEND Internal Medicine Gastroenterology
DX: R10.9 Unspecified abdominal pain (principal)
CPT/HCPCS: 74177

== ENCOUNTER → 2020-07-13 | Outpatient (CLI) | payer MEDICARE, OTHER ==
--- NOTE | 2020-07-13 16:19 | RADIOLOGY REPORT (SQ) ---
EXAM DESCRIPTION: T SPINE AP/LAT IMAGES COMPLETED DATE/TIME: 07/13/2020 10:38 am REASON FOR STUDY: MIDLINE THORACIC BACK PAIN/UNSPECIFIED CHRONICITY COMPARISON: None. NUMBER OF VIEWS: Two views. TECHNIQUE: AP and lateral radiographic images acquired of the thoracic spine. LIMITATIONS: None. FINDINGS: MINERALIZATION: Normal. ALIGNMENT: Evaluation of the cervicothoracic junction is limited due to superimposition of overlying soft tissues. VERTEBRAE: The visualized thoracic vertebral body heights are preserved. There is no fracture. DISCS: Preserved. HARDWARE: None in the spine. MEDIASTINUM AND SOFT TISSUES: Mild atherosclerotic calcification of the aortic arch. VISUALIZED LUNG PETERS: Clear. OTHER: No other findings. IMPRESSION: No acute fracture or malalignment of the thoracic spine. TECHNICAL DOCUMENTATION: JOB ID: [id number] [employer]- All Rights Reserved Reading location - IP/workstation name: [email or web address]
== END ==
LOC: RAD 10:25
PROVIDERS: ATTEND Physician Assistant
DX: M54.6 Pain in thoracic spine (principal)
CPT/HCPCS: 72070